=== PATIENT | male | born 1955 | race Caucasian/White ===

== ENCOUNTER → 2017-01-07 | Outpatient (CLI) | payer OTHER ==
[~2017-01-07] MED LIST: NAPROXEN EC500 MG PO; NO HOME MEDICATIONS
== END ==
LOC: COL.RAD 07:14
DX: S46.311A Strain of muscle, fascia and tendon of triceps, right arm, initial encounter (principal); X58.XXXA Exposure to other specified factors, initial encounter

== ENCOUNTER 2019-12-02 06:16 | Day surgery (SDC) | payer OTHER ==
[2019-12-02] VITALS (9 sets, daily range): BP systolic 54–155; BP diastolic 47–84; PULSE 54–68
[~2019-12-02] VITALS: Ht 182.9 cm; Wt 102.4 kg
[2019-12-02] MEDS ORDERED: ASPIRIN E.C. 8181 MG PO (06:30)
[2019-12-02] MEDS ORDERED: PRINIVIL20 MG PO (06:31)
[2019-12-02] MEDS ORDERED: IMDUR 30MG30 MG/TAB PO (06:31)
[2019-12-02] MEDS ORDERED: TOPROL XL 50MG50 MG PO (06:32)
[2019-12-02 07:03] LABS: HEMATOCRIT 48.3 % (42.0-52.0); HEMOGLOBIN 15.6 g/dl (13.5-18.0); MEAN CELL VOLUME 85 fl (80.0-100.0); MEAN CORPUSCULAR HEMOGLOBIN 28 pg (27.0-31.0); MEAN CORPUSCULAR HGB CONC 32 g/dl (33.0-37.0); MEAN PLATELET VOLUME 11.6 fl (7.4-10.4); PLATELET COUNT 217 K/mm3 (130-400); RED BLOOD COUNT 5.68 M/mm3 (4.20-5.60)
[2019-12-02 07:07] LABS: PROTHROMBIN TIME 11.2 SECONDS (9.7-12.8)
[2019-12-02 07:10] LABS: PARTIAL THROMBOPLASTIN TIME 34.4 SECONDS (26.0-37.0)
[2019-12-02 07:17] LABS: CREATININE, serum 1.04 (0.66-1.25); POTASSIUM 4.8 mmol/L (3.4-5.0)
--- NOTE | 2019-12-02 09:01 | NUR ---
SEE MERGE FOR MEDICATION ADMINISTRATION TIMES AND INTRA AND POST SEDATION ASSESSMENTS.
--- NOTE | 2019-12-02 09:53 | NUR ---
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 1/2 ns infusing at 100 cc/hr to lfa. pt is GCS 15 pale, cool damp with 5/10 midscapular pain. bs report from Stephanie MARTINO. Dr. Vogt contacted, received telephone order for repeat EKG, pain med... nitro drip order is ordered. pt is hypotensive, md aware. hob elevated slightly, and pt placed in trendelenberg.
--- NOTE | 2019-12-02 09:57 | NUR ---
bedside hand off report to jr day. pt is alert and oriented. pt is complaining of mid upper back pain. shay norris in the room at this time. pt blood pressure cycling q5min. blood pressure 92/66 hr: 54. family at bedside with patient. TR band in place on r hand with 11ml of air in the syringe.
--- NOTE | 2019-12-02 10:42 | NUR ---
Pt arrived in express unit after heart cath at 0953. TR band in place to rt wrist, 11 cc air in band, site looks good without bleeding or hematoma. 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 Pt arrives cool and damp but without active diaphoresis, still c/o 5/[address] Vogt was contacted and gave telephone order for repeat EKG and order for Morphine 1 mg IV for pain. Nitro drip 3ml/hr (10 mcg/min) ordered. Morphine and nitro drip initiated at 1005 with bp 95/60, hr 57. Heparin drip was initiated at 1000 units/hr per orders. Pt's pain basically unchanged. aware. Report given to [facility] crew who departed at 1042. Pt's and daughter aware of pt's transfer and destination.
--- NOTE | 2019-12-02 10:57 | NUR ---
Report called to Angelita MARTINO on critical care unit at [facility], .. pt was being transferred by ground to 217. ground ems departed express unit at 1042
== END 2019-12-02 10:42 | disposition short-term general hospital (02) ==
LOC: COL.CAR 06:16
PROVIDERS: Internal Medicine Cardiovascular Disease; Nurse Practitioner
DX: I25.10 Atherosclerotic heart disease of native coronary artery without angina pectoris (principal); R94.39 Abnormal result of other cardiovascular function study
CPT/HCPCS: J1644; J2250; J2270; J3010; Q9967

== ENCOUNTER 2020-01-25 11:51 | Outpatient (RCR) | payer OTHER ==
[~2020-01-25 11:51] MED LIST changes: +ASPIRIN E.C. 8181 MG PO; +IMDUR 30MG30 MG/TAB PO; +PRINIVIL20 MG PO; +TOPROL XL 50MG50 MG PO
== END 2020-04-03 | disposition home or self-care (01) ==
LOC: COL.CR
DX: Z48.812 Encounter for surgical aftercare following surgery on the circulatory system (principal); Z95.1 Presence of aortocoronary bypass graft